=== PATIENT | female | born 1980 | race Two or more races ===

== ENCOUNTER 2018-01-17 15:39 | Outpatient (CLI) | payer OTHER | END 2018-01-17 15:57 | disposition home or self-care (01) | LOC: RAD 15:39 | DX: Z12.31 Encounter for screening mammogram for malignant neoplasm of breast (principal); N93.8 Other specified abnormal uterine and vaginal bleeding; Z00.00 Encounter for general adult medical examination without abnormal findings ==

== ENCOUNTER → 2020-01-25 | Outpatient (CLI) | payer OTHER | END | disposition home or self-care (01) | LOC: MAMO-SONO 11:35 | PROVIDERS: ATTEND Specialist | DX: Z12.31 Encounter for screening mammogram for malignant neoplasm of breast (principal); N60.11 Diffuse cystic mastopathy of right breast; N60.12 Diffuse cystic mastopathy of left breast ==